=== PATIENT | male | born 1985 | race African-American/Black ===

== ENCOUNTER 2017-06-22 14:06 | Outpatient (CLI) | payer OTHER ==
--- NOTE | 2017-06-22 16:39 | RAD ---
THREE VIEWS CERVICAL SPINE 06/22/17 HISTORY: Disability evaluation, neck pain. FINDINGS: C1 to cervicothoracic junction is seen on the lateral view. Vertebral body heights are within normal limits. There is mild osteophyte formation seen at the C6-7 level with slight narrowing of the inte rvertebral disc space. Remaining intervertebral disc spaces are within normal limits. There is no fr acture or subluxation involving the cervical spine. Prevertebral soft tissues are within normal limi ts. IMPRESSION: 1. Minimal degenerative changes in the cervical spine. No fracture or subluxation is seen. 2. Obscuration of portions of the odontoid on the odontoid view. The odontoid has a grossly nor mal appearance on the lateral projection. POS: [facility]
== END 2017-06-22 14:07 | disposition home or self-care (01) ==
LOC: NAV RAD 14:06
PROVIDERS: ATTEND Family Medicine
DX: Z02.71 Encounter for disability determination (principal); M47.892 Other spondylosis, cervical region
CPT/HCPCS: 72040

== ENCOUNTER 2017-09-07 11:34 | Emergency (ER) | payer OTHER, SELFPAY | END 2017-09-07 12:08 | disposition home or self-care (01) | LOC: NAV ERS 11:34 | DX: S90.861A Insect bite (nonvenomous), right foot, initial encounter (principal); F31.9 Bipolar disorder, unspecified; F17.200 Nicotine dependence, unspecified, uncomplicated; I10 Essential (primary) hypertension; J45.909 Unspecified asthma, uncomplicated; W57.XXXA Bitten or stung by nonvenomous insect and other nonvenomous arthropods, initial encounter ==

== ENCOUNTER 2017-09-07 15:05 | Emergency (ER) | payer OTHER, SELFPAY ==
[2017-09-07] MEDS ORDERED: Acetaminophen 500 MG TAB ONE (15:18)
[2017-09-07] MEDS ORDERED: Sodium Chloride 0.9% 1,000 ML ONE (15:18)
[2017-09-07 16:04] LABS: Acetaminophen Less than 6.0 mcg/mL (10.0-30.0); Alcohol Less than 10 mg/dL (Less than 10); CK (CPK) 369 U/L (30-200); Salicylate Less than 8.0 mg/dL (15.0-30.0)
[2017-09-07 16:06] LABS: ALT (SGPT) 12 U/L (8-55); AST (SGOT) 21 U/L (5-34); Albumin 4.3 g/dL (3.5-5.0); Alkaline Phosphatase 60 U/L (40-150); Anion Gap 16 mmol/L (10-20); BUN (Urea Nitrogen) 4 mg/dL (8.9-20.6); Bilirubin, Total 0.9 mg/dL (0.2-1.2); CKMB 2.9 ng/mL (0-6.6); Calc. Creatinine Clearance 0 mL/min (70-130); Calcium 9.7 mg/dL (7.8-10.44); Carbon Dioxide 25 mmol/L (22-29); Chloride 104 mmol/L (98-107); Estimated GFR-MDRD Greater than 90; Globulin 2.9 g/dL (2.4-3.5); Glucose 104 mg/dL (70-105); Potassium 3.5 mmol/L (3.5-5.1); Protein, Total 7.2 g/dL (6.0-8.3); Sodium 141 mmol/L (136-145); Troponin I Less than 0.010 ng/mL (< 0.028)
[2017-09-07 16:15] LABS: #Basophils 0.2 thou/uL (0.0-0.2); #Eosinphils 0.6 thou/uL (0.0-0.7); #Lymphocytes 3.4 thou/uL (1.20-3.40); #Monocytes 0.7 thou/uL (0.11-0.59); #Neutrophils 3.8 thou/uL (1.40-6.50); %Basophils 1.9 % (0.0-1.0); %Eosinophils 6.8 % (0.0-10.0); %Lymphocytes 38.7 % (21.0-51.0); %Monocytes 8.4 % (0.0-10.0); %Neutrophils 44.1 % (42.0-75.0); Hemoglobin 14.5 g/dL (14.0-18.0); Mean Corpuscular HGB CONC 32.1 g/dL (32.0-36.0); Mean Corpuscular Hemoglobin 31.5 pg (27.0-31.0); Mean Corpuscular Volume 98.4 fl (80.0-94.0); Mean Platelet Volume 7.6 fL (7.4-10.4); Platelet Count 212 thou/uL (130-400); RBC Distribution Width 11.9 % (11.5-14.5); White Blood Cell (WBC) Count 8.7 thou/uL (4.8-10.8)
== END 2017-09-07 16:04 | disposition left against medical advice (07) ==
LOC: NAV ERS 15:05
DX: S90.861A Insect bite (nonvenomous), right foot, initial encounter (principal); J45.909 Unspecified asthma, uncomplicated; F31.9 Bipolar disorder, unspecified; F17.200 Nicotine dependence, unspecified, uncomplicated; I10 Essential (primary) hypertension; W57.XXXA Bitten or stung by nonvenomous insect and other nonvenomous arthropods, initial encounter
CPT/HCPCS: 80053; 80164; 80307; 82550; 82553; 84484; 85025; 99281; 99283; J7050

== ENCOUNTER 2017-09-08 03:09 | Emergency (ER) | payer OTHER ==
[2017-09-08] MEDS ORDERED: Sodium Chloride 0.9% 1,000 ML ONE (03:51)
[2017-09-08 04:33] LABS: Cocaine Metabolite Screen Not Detected (NotDetected); Methamphetamine Detected (NotDetected); Opiate Screen Not Detected (NotDetected); Phencyclidine (PCP) Not Detected (NotDetected); THC/Cannabinoid Screen Detected (NotDetected)
[2017-09-08 04:34] LABS: Amphetamine Detected (NotDetected); Barbiturates Screen Not Detected (NotDetected); Benzodiazepine Screen Not Detected (NotDetected); Medtox Control Line Valid? VALID (VALID); Methadone Not Detected (NotDetected); Oxycodone Screen Not Detected (NotDetected); Tricyclic Screen Not Detected (NotDetected)
== END 2017-09-08 04:55 | disposition home or self-care (01) ==
LOC: NAV ERS 03:09
DX: J45.21 Mild intermittent asthma with (acute) exacerbation (principal); F15.10 Other stimulant abuse, uncomplicated; F12.10 Cannabis abuse, uncomplicated; I10 Essential (primary) hypertension; F31.9 Bipolar disorder, unspecified; F17.200 Nicotine dependence, unspecified, uncomplicated
CPT/HCPCS: 80306; 94640; 94760; J7050; J7620

== ENCOUNTER 2017-09-08 12:08 | Emergency (ER) | payer OTHER, SELFPAY ==
[2017-09-08] MEDS ORDERED: Bacitracin Zinc 1 Packet ONE (12:27)
== END 2017-09-08 12:42 | disposition home or self-care (01) ==
LOC: NAV ERS 12:08
DX: S60.511A Abrasion of right hand, initial encounter (principal); S90.811A Abrasion, right foot, initial encounter; F31.9 Bipolar disorder, unspecified; J45.909 Unspecified asthma, uncomplicated; I10 Essential (primary) hypertension; F17.200 Nicotine dependence, unspecified, uncomplicated; Z79.899 Other long term (current) drug therapy; X58.XXXA Exposure to other specified factors, initial encounter
CPT/HCPCS: 99283

== ENCOUNTER 2017-09-21 16:03 | Emergency (ER) | payer SELFPAY ==
[2017-09-21] MEDS ORDERED: Ketorolac Tromethamine 60 MG/2 ML VIAL ONE (16:28)
== END 2017-09-21 16:45 | disposition home or self-care (01) ==
LOC: NAV ERS 16:03
DX: M79.671 Pain in right foot (principal); M79.672 Pain in left foot; J45.909 Unspecified asthma, uncomplicated; F17.200 Nicotine dependence, unspecified, uncomplicated; F31.9 Bipolar disorder, unspecified; I10 Essential (primary) hypertension
CPT/HCPCS: 96372; J1885